=== PATIENT | female | born 1940 | race Caucasian/White ===

== ENCOUNTER → 2016-09-08 | Outpatient (CLI) | payer OTHER | END | disposition home or self-care (01) | LOC: PCVCIMAG 15:58 | PROVIDERS: ATTEND Internal Medicine Cardiovascular Disease | DX: I65.23 Occlusion and stenosis of bilateral carotid arteries (principal); I25.10 Atherosclerotic heart disease of native coronary artery without angina pectoris; I10 Essential (primary) hypertension; E11.9 Type 2 diabetes mellitus without complications; E78.00 Pure hypercholesterolemia, unspecified; H93.19 Tinnitus, unspecified ear; R07.89 Other chest pain | CPT/HCPCS: 80061; 93005; 93306; 93880 ==

== ENCOUNTER → 2016-09-10 | Outpatient (CLI) | payer OTHER ==
[~2016-09-10] MED LIST: REGADENOSON 0.4 MG/5 ML DISP.SYRIN. IV ONE
== END | disposition home or self-care (01) ==
LOC: PCVCIMAG 09:48
PROVIDERS: ATTEND Internal Medicine Cardiovascular Disease
DX: I25.10 Atherosclerotic heart disease of native coronary artery without angina pectoris (principal); R06.00 Dyspnea, unspecified; I67.89 Other cerebrovascular disease; Z95.5 Presence of coronary angioplasty implant and graft
CPT/HCPCS: 78452; 93017; A9500; J2785

== ENCOUNTER → 2018-02-22 | Outpatient (CLI) | payer OTHER ==
--- NOTE | 2018-02-22 17:10 | PCVCIMAG ---
APPROVED REPORT Study performed: 02/22/2018 13:07:16 EXAM: Comprehensive 2D, Doppler, and color-flow Echocardiogram Patient Location: Echo lab Room #: 2Status: routine BSA: 1.59 HR: 71 bpmBP: 134/74 mmHg Rhythm: NSR Other Information Study Quality: Good Risk Factors: Cardiac Risk Factors: HTN, Hyperlipidemia Indications CAD Hypertension/HDD S/P stents, mitral regurgitation, tricuspid regurgitation 2D Dimensions LVEF(%): 40.05 (>50%) IVSd: 7.99 (7-11mm)LVOT Diam: 18.79 (18-24mm) LVDd: 49.30 mm PWd: 7.54 (7-11mm)Ascending Ao: 29.56 (22-36mm) LVDs: 39.66 (25-40mm) Left Atrium: 32.70 (27-40mm) Aortic Root: 21.71 mm LV Single Plane 4CH: 31.55 % LV Single Plane 2CH: 43.23 %Baltazar's LVEF: 37.39 % Biplane EF: 36.3 % Volumes Left Atrial Volume (Systole) Single Plane 4CH: 47.48 mLSingle Plane 2CH: 42.53 mL Biplane LA Volume: 51.00 mLLA ESV Index: 32.00 mL/m2 Aortic Valve AoV Peak Nahun.: 1.31 m/s AO Peak Gr.: 7.32 mmHgLVOT Max P.95 mmHg LVOT Max V: 1.11 m/s AMINA Vmax: 2.35 cm2 Mitral Valve E/A Ratio: 0.8 MV Decel. Time: 98.87 ms MV E Max Nahun.: 0.67 m/s MV A Nahun.: 0.79 m/s MV PHT: 28.67 ms IVRT: 86.51 ms TDI E/Lateral E': 9.57E/Medial E': 13.40 Medial E' Nahun.: 0.05 m/s Lateral E' Nahun.: 0.07 m/s Pulmonary Valve PV Peak Nahun.: 0.87 m/sPV Peak Gr.: 3.06 mmHg Pulmonary Vein P Vein S: 0.88 m/sP Vein A: 0.72 m/s P Vein D: 0.62 m/sP Vein A Dur.: 141.9 msec P Vein S/D Ratio: 1.42 Tricuspid Valve TR Peak Nahun.: 2.70 m/s TR Peak Gr.: 29.25 mmHg TV Vmax: 0.70 m/sPA Pressure: 36.00 mmHg Left Ventricle The left ventricle is normal size. There is global hypokinesis of the left ventricle. There is normal left ventricular wall thickness. Left ventricular systolic function is moderately decreased.worse in ant apex LVEF is 35-40%. Grade I - abnormal relaxation pattern. Right Ventricle The right ventricle is normal size. The right ventricular systolic function is normal. Atria The left atrium size is normal. The right atrium size is normal. Aortic Valve Aortic valve is trileaflet. No aortic regurgitation is present. There is no aortic valvular stenosis. Mitral Valve The mitral valve is normal in structure. Moderate mitral regurgitation. No evidence of mitral valve stenosis. Tricuspid Valve The tricuspid valve is normal in structure. Moderate to severe tricuspid regurgitation with a PA pressure of 36 mmHg. Pulmonic Valve The pulmonary valve is normal in structure. Mild to moderate pulmonic regurgitation. Great Vessels The aortic root is normal in size. The ascending aorta is normal in size. IVC is normal in size and collapses with >50% inspiration Pericardium There is no pericardial effusion. There is no pleural effusion. <Conclusion> The left ventricle is normal size. LVEF is 35-40%. Left ventricular systolic function is moderately decreased.worse in ant apex LVEF is 35-40%. Grade I - abnormal relaxation pattern. The left atrium size is normal. Aortic valve is trileaflet. There is no aortic valvular stenosis. Moderate mitral regurgitation. Moderate to severe tricuspid regurgitation with a PA pressure of 36 mmHg. There is no pericardial effusion.
== END | disposition home or self-care (01) ==
LOC: PCVCIMAG 16:27
PROVIDERS: ATTEND Internal Medicine Cardiovascular Disease
DX: I08.1 Rheumatic disorders of both mitral and tricuspid valves (principal); I25.10 Atherosclerotic heart disease of native coronary artery without angina pectoris; I10 Essential (primary) hypertension; E11.9 Type 2 diabetes mellitus without complications; Z95.5 Presence of coronary angioplasty implant and graft
CPT/HCPCS: 93306; 93880

== ENCOUNTER → 2018-03-01 | Outpatient (CLI) | payer OTHER ==
[~2018-03-01] MED LIST changes: +DIAZEPAM 10 MG TABLET. ONE; +IOHEXOL 350 MG/ML 100 ML VIAL. ONE; +IOHEXOL 350 MG/ML 50 ML VIAL. ONE; +IV NORMAL SALINE 500ML BAG 500 ML ONE; +LIDOCAINE 1% PF 30 ML VIAL. ONE; +LIDOCAINE 1%/EPI 1:100,000 20 ML VIAL. ONE; +MIDAZOLAM HCL/PF 2 MG/2 ML VIAL. ONE; -REGADENOSON 0.4 MG/5 ML DISP.SYRIN. IV ONE; +fentaNYL PF VIAL 100 MCG/2 ML VIAL ONE; +hydrALAZINE 20 MG/ML VIAL. ONE
--- NOTE | 2018-03-01 15:28 | PCVCINTER ---
EXAM: 1. AORTOGRAM AND BILATERAL ILIOFEMORAL ANGIOGRAPHY 2. BILATERAL RENAL ANGIOGRAPHY INDICATION: Peripheral arterial disease. Leg pain. Hypertension. Renal atherosclerosis. PROCEDURE: Procedure and risks of the procedures listed above were discussed with the patient and consent obtained. Risks including but not limited to bleeding, infection, stroke, vascular injury, neurologic injury, embolization, allergic reactions, bowel ischemia requiring resection, and contrast-induced nephropathy requiring dialysis were discussed as appropriate and consent obtained. Patient was placed on the angiography table. IV conscious sedation was used throughout procedure with appropriate monitoring from 2:15 PM through 2:45 PM. The right groin was prepped and draped in the normal sterile fashion. Ultrasound was used to interrogate the right groin and demonstrate the right common femoral artery. An ultrasound image was saved. Under ultrasound guidance a 21 gauge needle was used to gain access into the right common femoral artery and a 5F vascular sheath was placed. The left groin was prepped abnormal sterile fashion. Under ultrasound guidance access into the left common femoral vein was obtained and a 7 [place] sheath was placed. Catheter was placed into the suprarenal abdominal aorta and abdominal aortic angiogram performed. Catheter was placed into the distal abdominal aorta and bilateral iliofemoral angiography performed. Catheter was placed into the right renal arteries and right renal angiograms performed. Catheter was placed into the left renal arteries and left renal angiograms performed. Dr. Maza joined the procedure and he performed coronary angiography. Please see his separate dictation for details. Catheters and wires removed. Sheath was removed and hemostasis obtained using the FISH device. No immediate complications. FINDINGS: Aortogram: There is one right and 2 left renal arteries. Mild plaque infrarenal abdominal aorta without significant stenosis. Bilateral iliofemoral angiography: Mild plaque in the right and left common iliac arteries without significant stenosis. Both internal iliac arteries are patent. Mild plaque right and left external iliac arteries without significant stenosis. The right and left common femoral and profunda femoral arteries and visualized upper superficial femoral arteries are patent. Right renal artery: Minimal plaque proximal vessel does not cause significant stenosis. No branch vessel stenosis. Left renal artery: There are 2 left renal arteries. Both show minimal plaque in their proximal portion which does not cause significant stenosis. IMPRESSION: No significant aortoiliac stenosis. No significant iliofemoral stenosis. No significant renal artery stenosis. LOC:[id number]
--- NOTE | 2018-03-06 18:49 | PCVCINTER ---
APPROVED REPORT Study performed: 03/01/2018 13:58:18 Patient Details Patient Status: Out-Patient Room #: 4 The patient is a 78 year-old Female Event Personnel Shaunna Aden MD, Nigel Sheldon RT(R), Evangelina Whitehead RT(R), Christine Rahman RN Risk Factors Arterial HypertensionDysplipidemia (Type: 0), Family History, Last Creatanine 0.6Tobacco History (Never) Previous Procedures/Diagnoses Previous Femoral Procedure, CAD, Valvular heart disease, Hypertension Procedure Narrative A Right Heart Catheterization was performed with a 7 Fr. Port[place]-Camilo catheter and pressure were recorded. Cardiac outputs were obtained by the Thermal Dilution method. A 6F sheath was inserted into the right femoral artery. Coronary angiography was performed using coronary diagnostic catheters. The right coronary system was accessed and visualized with a JR4 catheter. The left coronary system was accessed and visualized with a JL4 catheter. The left ventricle was accessed and visualized with a Straight Pigtail catheter. Left ventriculogram was performed in CURRY projection. Closure device was deployed with a 6 Fr FISH. Hemostasis was obtained with manual pressure following sheath removal without any complications. The patient tolerated the procedure well and there were no complications associated with the procedure. There was no hematoma. Hemodynamics The right atrial mean pressure is 3 mmHg. The right ventricular pressure is 25/4 mmHg. The pulmonary artery pressure is 31/20 mmHg with a mean of 26 mmHg. The mean pulmonary capillary wedge pressure is 14 mmHg. The aortic pressure is 145/57 mmHg with a mean of 93 mmHg. The left ventricular pressure is 145/3 mmHg with a mean of 9 mmHg. The cardiac output and index were assessed using Thermal. The cardiac output using thermo method is 3.99 L/min. The cardiac index using thermo method is 2.5 L/min/m2. Conclusion #1 successful right heart catheterization with pulmonary pressures and cardiac output see above by thermodilution #2 normal left jugular size and systolic function EF 55-60% #3 LAD with proximal stent placed with mild in-stent restenosis and diffuse distal disease #4 circumflex OM is nondominant but moderate distribution widely patent #5 moderately disease right coronary artery dominant vessel with proximal calcification 50-60% diffuse distal disease giving rise to PDA and BRITTANI well preserved Recommendations and plan: Continue aggressive risk factor modification. No current indication for coronary intervention. Right-sided pressures are normal.
== END | disposition home or self-care (01) ==
LOC: PCVCINTER 14:02
PROVIDERS: ATTEND Internal Medicine Cardiovascular Disease
DX: I70.1 Atherosclerosis of renal artery (principal); I25.10 Atherosclerotic heart disease of native coronary artery without angina pectoris; I70.293 Other atherosclerosis of native arteries of extremities, bilateral legs; I70.0 Atherosclerosis of aorta; I10 Essential (primary) hypertension; Z95.5 Presence of coronary angioplasty implant and graft; I08.1 Rheumatic disorders of both mitral and tricuspid valves; Z79.899 Other long term (current) drug therapy
CPT/HCPCS: 36252; 75716; 93458; 99152; 99153; J0360; J1644; J2250; J3010; J3490; J7040; Q9967